=== PATIENT | male | born 1990 | race Caucasian/White ===

== ENCOUNTER 2017-02-02 17:15 | Emergency (ER) | payer SELFPAY ==
[~2017-02-02] VITALS: Ht 182.9 cm; Wt 77.6 kg
[2017-02-02 20:05] VITALS: BP 142/80
== END 2017-02-02 20:39 | disposition home or self-care (01) ==
LOC: EMS 17:18
DX: T40.991A Poisoning by other psychodysleptics [hallucinogens], accidental (unintentional), initial encounter (principal); T43.621A Poisoning by amphetamines, accidental (unintentional), initial encounter; F11.90 Opioid use, unspecified, uncomplicated; F15.90 Other stimulant use, unspecified, uncomplicated; F17.210 Nicotine dependence, cigarettes, uncomplicated; Y92.89 Other specified places as the place of occurrence of the external cause
CPT/HCPCS: 99283

== ENCOUNTER 2020-06-21 15:13 | Emergency (ER) | payer SELFPAY ==
[~2020-06-21] VITALS: Ht 175.3 cm; Wt 68.2 kg
[2020-06-21 15:52] VITALS: BP 110/93
[2020-06-21] MEDS ORDERED: FLUORESCEIN SODIUM 1 MG STRIP OS ONE (16:00)
[2020-06-21] MEDS ORDERED: LORazepam 1 MG TABLET PO ONE (16:15)
== END 2020-06-21 16:38 | disposition home or self-care (01) ==
LOC: EMS 15:17
DX: H57.89 Other specified disorders of eye and adnexa (principal)
CPT/HCPCS: 99283

== ENCOUNTER 2021-08-30 23:30 | Emergency (ER) | payer SELFPAY ==
[~2021-08-30] VITALS: Ht 180.3 cm; Wt 81.8 kg
[2021-08-31 01:12] LABS: BASOPHILS % (AUTO) 0.5 % (0.0-2.0); EOSINOPHILS % (AUTO) 1.4 % (1.0-6.0); HEMATOCRIT 37.3 % (41-53); LYMPHOCYTES # (AUTO) 2.4 K/uL (1.0-4.8); LYMPHOCYTES % (AUTO) 27.7 % (22.0-44.0); MEAN CORPUSCULAR HEMOGLOBIN 29.8 pg (26.0-34.0); MEAN CORPUSCULAR HGB CONC 34.8 G/dL (31.0-37.0); MEAN CORPUSCULAR VOLUME 86 fL (80-100); MONOCYTES # (AUTO) 1.2 K/uL (0.1-1.0); MONOCYTES % (AUTO) 13.7 % (2.0-9.0); NEUTROPHILS % (AUTO) 56.7 % (40.0-70.0); PLATELET COUNT (AUTO) 274 K/uL (150-450); RED BLOOD CELL COUNT(AUTO) 4.35 MIL/uL (4.50-5.90); RED CELL DISTRIBUTION WIDTH 13.5 % (11.5-14.5)
[2021-08-31 01:19] LABS: ANION GAP 10 mmol/L (8-16); CALCIUM, TOTAL 7.9 mg/dL (8.8-10.5); CARBON DIOXIDE 26 mmol/L (22-29); CHLORIDE 108 mmol/L (98-107); CREATININE 1.21 mg/dL (0.60-1.30); GLOMERULAR FILTR. RATE CALC > 60 mL/min (>60); GLUCOSE,RANDOM 114 mg/dL (70-110); POTASSIUM 3.4 mmol/L (3.5-5.1); SODIUM SERUM 144 mmol/L (136-145); UREA NITROGEN, BLOOD 18 mg/dL (7-18)
[2021-08-31 01:26] LABS: ALANINE AMINOTRANSFERASE 192 U/L (12-78); ALBUMIN 3.3 g/dL (3.4-5.0); ALKALINE PHOSPHATASE 106 U/L (46-116); BILIRUBIN,TOTAL 0.5 mg/dL (0.1-1.0); TOTAL PROTEIN, SERUM 6.6 g/dL (6.4-8.2)
[2021-08-31 01:35] LABS: ASPARTATE AMINOTRANSFERASE 708 U/L (15-37)
[2021-08-31 01:38] VITALS: BP 130/81
[2021-08-31 01:41] LABS: COVID AG,FIA SOURCE NASAL SWAB
== END 2021-08-31 06:58 | disposition home or self-care (01) ==
LOC: EMS 23:32
DX: F10.10 Alcohol abuse, uncomplicated (principal); F11.10 Opioid abuse, uncomplicated; F15.10 Other stimulant abuse, uncomplicated; F17.210 Nicotine dependence, cigarettes, uncomplicated; Y90.4 Blood alcohol level of 80-99 mg/100 ml; Z20.822 Contact with and (suspected) exposure to COVID-19
CPT/HCPCS: 36415; 80053; 85025; 87426; 99285; G0480

== ENCOUNTER 2021-10-15 17:08 | Inpatient (IN) | payer MEDICAID, OTHER ==
[~2021-10-15] VITALS: Ht 170.2 cm; Wt 89.5 kg
[2021-10-15 18:12] LABS: BASOPHILS % (AUTO) 0.7 % (0.0-2.0); EOSINOPHILS % (AUTO) 2.2 % (1.0-6.0); HEMATOCRIT 40.6 % (41-53); HEMOGLOBIN 13.6 g/dL (13.5-17.5); LYMPHOCYTES # (AUTO) 1.9 K/uL (1.0-4.8); LYMPHOCYTES % (AUTO) 34.9 % (22.0-44.0); MEAN CORPUSCULAR HEMOGLOBIN 29.9 pg (26.0-34.0); MEAN CORPUSCULAR HGB CONC 33.5 G/dL (31.0-37.0); MEAN CORPUSCULAR VOLUME 89 fL (80-100); MONOCYTES # (AUTO) 0.8 K/uL (0.1-1.0); MONOCYTES % (AUTO) 13.9 % (2.0-9.0); NEUTROPHILS # (AUTO) 2.7 K/uL (1.8-7.7); NEUTROPHILS % (AUTO) 48.3 % (40.0-70.0); PLATELET COUNT (AUTO) 286 K/uL (150-450); RED BLOOD CELL COUNT(AUTO) 4.55 MIL/uL (4.50-5.90); RED CELL DISTRIBUTION WIDTH 14.1 % (11.5-14.5)
[2021-10-15 18:19] LABS: COVID AG,FIA SOURCE NASOPHARYNGEAL
[2021-10-15 18:21] LABS: ANION GAP 9 mmol/L (8-16); CALCIUM, TOTAL 8.5 mg/dL (8.8-10.5); CARBON DIOXIDE 25 mmol/L (22-29); CHLORIDE 106 mmol/L (98-107); CREATININE 1.01 mg/dL (0.60-1.30); GLUCOSE,RANDOM 101 mg/dL (70-110); POTASSIUM 4.2 mmol/L (3.5-5.1); SODIUM SERUM 140 mmol/L (136-145); UREA NITROGEN, BLOOD 13 mg/dL (7-18)
[2021-10-15 18:25] LABS: GLOMERULAR FILTR. RATE CALC > 60 mL/min (>60)
[2021-10-15 18:27] LABS: ALANINE AMINOTRANSFERASE 38 U/L (12-78); ALBUMIN 3.9 g/dL (3.4-5.0); ALKALINE PHOSPHATASE 124 U/L (46-116); ASPARTATE AMINOTRANSFERASE 38 U/L (15-37); BILIRUBIN,TOTAL 0.5 mg/dL (0.1-1.0); TOTAL PROTEIN, SERUM 7.9 g/dL (6.4-8.2)
[2021-10-15] MEDS: LORazepam 2 MG TABLET PO PRN (23:10)
[2021-10-16] MEDS ORDERED: MAG HYDROX/AL HYDROX/SIMETH ES 30 ML SUSPENSION UDCUP PO PRN (06:15)
[2021-10-16] MEDS ORDERED: NICOTINE 14 MG/24 HOUR PATCH TD PRN (06:15)
[2021-10-16] MEDS ORDERED: LOPERAMIDE HCL 2 MG CAPSULE PO PRN (06:15)
[2021-10-16] MEDS ORDERED: MAGNESIUM HYDROXIDE SUSPENSION 30 ML UDCUP PO PRN (06:15)
[2021-10-16] MEDS ORDERED: ALBUTEROL SULFATE HFA 90 MCG/PUFF 8 GM INHALER IH PRN (06:15)
[2021-10-16] MEDS ORDERED: GuaiFENesin/D-METHORPHAN [SUGAR-FREE] 200-20MG/10 ML SYRUP UDCUP PO PRN (06:15)
[2021-10-16] MEDS ORDERED: PETROLATUM,WHITE 28 GM JELLY TP PRN (06:15)
[2021-10-16] MEDS ORDERED: CloNIDine HCL 0.1 MG TABLET PO PRN (06:15)
[2021-10-16] MEDS ORDERED: ACETAMINOPHEN 325 MG TABLET PO PRN (06:15)
[2021-10-16] MEDS ORDERED: DOCUSATE SODIUM 100 MG CAPSULE PO PRN (06:15)
[2021-10-16] MEDS ORDERED: ONDANSETRON HCL 4 MG TABLET PO PRN (06:15)
[2021-10-16 08:13] VITALS: BP 125/69
[2021-10-16] MEDS: RisperiDONE 1 MG TABLET PO SCH (15:50)
[2021-10-16] MEDS: LORazepam 2 MG TABLET PO PRN (15:50)
[2021-10-16 16:42] VITALS: BP 153/81
[2021-10-17] MEDS: LORazepam 2 MG TABLET PO PRN (07:51)
[2021-10-17] MEDS: HALOPERIDOL 5 MG TABLET PO PRN (07:51)
[2021-10-17] MEDS: RisperiDONE 1 MG TABLET PO SCH ×2 (07:51→17:05)
[2021-10-17] MEDS: IBUPROFEN 400 MG TABLET PO PRN (07:53)
[2021-10-17 08:47] VITALS: BP 159/91
[2021-10-17 16:05] VITALS: BP 164/88
[2021-10-17 21:03] VITALS: BP 148/84
[2021-10-18] MEDS: RisperiDONE 1 MG TABLET PO SCH ×2 (07:51→17:16)
[2021-10-18 08:05] VITALS: BP 146/92
[2021-10-18] MEDS ORDERED: DiphenhydrAMINE HCL 25 MG CAPSULE PO ONE (08:30)
[2021-10-18 08:49] VITALS: BP 146/87
[2021-10-18 09:05] LABS: HEMOGLOBIN A1C 5.1 % (3.8-5.6)
[2021-10-18 09:10] LABS: CHOL/HDL RATIO 2.7 (4.2-7.3); THYROID STIMULATING HORMONE 0.94 uIU/mL (0.36-3.74)
[2021-10-18] MEDS: ERYTHROMYCIN 0.5% 3.5 GM TUBE OPHTHALMIC OINTMENT OS SCH ×3 (09:35→19:23)
[2021-10-18 16:16] VITALS: BP 131/82
[2021-10-18] MEDS: HALOPERIDOL 5 MG TABLET PO PRN (19:06)
[2021-10-18] MEDS: LORazepam 2 MG TABLET PO PRN (19:06)
[2021-10-18 20:29] VITALS: BP 142/77
[2021-10-19 08:00] VITALS: BP 143/99
[2021-10-19] MEDS: ERYTHROMYCIN 0.5% 3.5 GM TUBE OPHTHALMIC OINTMENT OS SCH ×2 (08:21→16:24)
[2021-10-19] MEDS: HALOPERIDOL 5 MG TABLET PO PRN (08:21)
[2021-10-19] MEDS: RisperiDONE 1 MG TABLET PO SCH ×2 (08:21→16:23)
[2021-10-19] MEDS: LORazepam 2 MG TABLET PO PRN ×2 (08:21→22:00)
[2021-10-19 16:11] VITALS: BP 151/98
[2021-10-19] MEDS: IBUPROFEN 400 MG TABLET PO PRN (16:24)
[2021-10-19] MEDS: ZOLPIDEM TARTRATE 10 MG TABLET PO PRN (22:00)
[2021-10-20 08:25] VITALS: BP 157/102
[2021-10-20] MEDS: IBUPROFEN 400 MG TABLET PO PRN (08:41)
[2021-10-20] MEDS: RisperiDONE 1 MG TABLET PO SCH ×2 (08:41→16:01)
[2021-10-20] MEDS: HALOPERIDOL 5 MG TABLET PO PRN (08:41)
[2021-10-20] MEDS: ERYTHROMYCIN 0.5% 3.5 GM TUBE OPHTHALMIC OINTMENT OS SCH ×2 (08:41→16:01)
[2021-10-20] MEDS: LORazepam 2 MG TABLET PO PRN (08:42)
[2021-10-20 16:32] VITALS: BP 128/91
[2021-10-20 16:43] VITALS: BP 128/91
[2021-10-20] MEDS: ZOLPIDEM TARTRATE 10 MG TABLET PO PRN (21:21)
[2021-10-21 06:42] LABS: COVID AG,FIA SOURCE NASAL SWAB
[2021-10-21 08:19] VITALS: BP 136/90
[2021-10-21] MEDS: RisperiDONE 1 MG TABLET PO SCH ×2 (08:28→17:01)
[2021-10-21] MEDS: LORazepam 2 MG TABLET PO PRN (08:28)
[2021-10-21] MEDS: ERYTHROMYCIN 0.5% 3.5 GM TUBE OPHTHALMIC OINTMENT OS SCH (08:37)
[2021-10-21] MEDS: CIPROFLOXACIN HCL 0.3% 3.5 GM OPHTHALMIC OINTMENT OS SCH ×3 (12:12→17:18)
[2021-10-21] MEDS: AMOX TR/POT CLAV 500 MG/125 MG TABLET PO SCH ×3 (12:12→17:17)
[2021-10-21 16:11] VITALS: BP 142/82
[2021-10-21] MEDS ORDERED: AMOX1TAB15 PO ×2 (16:58→17:03)
== END 2021-10-21 17:45 | disposition left against medical advice (07) | DRG 750 ==
LOC: EMS 17:08 → 3EC 10-16 00:14
PROVIDERS: ADMIT Psychiatry & Neurology Child & Adolescent Psychiatry; ATTEND Psychiatry & Neurology Child & Adolescent Psychiatry
DX: F20.0 Paranoid schizophrenia (principal); F10.20 Alcohol dependence, uncomplicated; F11.90 Opioid use, unspecified, uncomplicated; F15.90 Other stimulant use, unspecified, uncomplicated; F41.9 Anxiety disorder, unspecified; Z20.822 Contact with and (suspected) exposure to COVID-19; Z79.899 Other long term (current) drug therapy; Z87.891 Personal history of nicotine dependence; Z71.51 Drug abuse counseling and surveillance of drug abuser
CPT/HCPCS: 70486; 80053; 80061; 83036; 84443; 85025; 99285; G0480

== ENCOUNTER 2022-05-15 03:15 | Inpatient (IN) | payer MEDICAID, OTHER ==
[~2022-05-15] VITALS: Ht 182.9 cm; Wt 92.5 kg
[~2022-05-15 03:15] MED LIST: OLAN5TAB52 PO
[2022-05-15 08:07] LABS: COVID AG,FIA SOURCE NASOPHARYNGEAL
[2022-05-15 08:34] LABS: BASOPHILS % (AUTO) 0.7 % (0.0-2.0); EOSINOPHILS % (AUTO) 1.9 % (1.0-6.0); HEMATOCRIT 36.1 % (41-53); HEMOGLOBIN 12.2 g/dL (13.5-17.5); LYMPHOCYTES # (AUTO) 1.1 K/uL (1.0-4.8); LYMPHOCYTES % (AUTO) 21.1 % (22.0-44.0); MEAN CORPUSCULAR HGB CONC 33.7 G/dL (31.0-37.0); MEAN CORPUSCULAR VOLUME 89 fL (80-100); MONOCYTES % (AUTO) 18.7 % (2.0-9.0); NEUTROPHILS # (AUTO) 3.1 K/uL (1.8-7.7); NEUTROPHILS % (AUTO) 57.6 % (40.0-70.0); PLATELET COUNT (AUTO) 219 K/uL (150-450); RED BLOOD CELL COUNT(AUTO) 4.06 MIL/uL (4.50-5.90); RED CELL DISTRIBUTION WIDTH 13.4 % (11.5-14.5)
[2022-05-15 08:46] LABS: ANION GAP 11 mmol/L (8-16); CALCIUM, TOTAL 8.6 mg/dL (8.8-10.5); CARBON DIOXIDE 27 mmol/L (22-29); CHLORIDE 101 mmol/L (98-107); CREATININE 0.73 mg/dL (0.60-1.30); GLOMERULAR FILTR. RATE CALC > 60 mL/min (>60); GLUCOSE,RANDOM 85 mg/dL (70-110); POTASSIUM 3.4 mmol/L (3.5-5.1); SODIUM SERUM 139 mmol/L (136-145); UREA NITROGEN, BLOOD 15 mg/dL (7-18)
[2022-05-15 08:52] LABS: ALANINE AMINOTRANSFERASE 69 U/L (12-78); ALBUMIN 3.6 g/dL (3.4-5.0); ALKALINE PHOSPHATASE 100 U/L (46-116); ASPARTATE AMINOTRANSFERASE 80 U/L (15-37); BILIRUBIN,TOTAL 0.5 mg/dL (0.1-1.0); TOTAL PROTEIN, SERUM 7.3 g/dL (6.4-8.2)
[2022-05-15 09:33] LABS: AMPHET/METH SCREEN,URINE POSITIVE (NEGATIVE); BARBITURATE SCREEN, URINE NEGATIVE (NEGATIVE); BENZODIAZEPINES SCREEN,URINE NEGATIVE (NEGATIVE); CANNABINOID SCREEN,URINE NEGATIVE (NEGATIVE); COCAINE SCREEN,URINE NEGATIVE (NEGATIVE); METHADONE SCREEN, URINE NEGATIVE (NEGATIVE); OPIATE SCREEN,URINE NEGATIVE (NEGATIVE); PHENCYCLIDINE SCREEN,URINE NEGATIVE (NEGATIVE)
[2022-05-15] MEDS ORDERED: OLANZapine 5 MG RAPDIS TABLET PO ONE (11:00)
[2022-05-15] MEDS ORDERED: PERMETHRIN 5% 60 GM CREAM TP ONE (12:45)
[2022-05-15] MEDS ORDERED: POTASSIUM CHLORIDE 20 MEQ ER TABLET PO ONE (12:45)
[2022-05-15] MEDS ORDERED: HALOPERIDOL 5 MG TABLET PO PRN (14:00)
[2022-05-15 16:46] VITALS: BP 118/70
[2022-05-15] MEDS: OLANZapine 5 MG TABLET PO SCH (17:43)
[2022-05-15] MEDS: LORazepam 2 MG TABLET PO PRN (17:46)
[2022-05-15 20:10] VITALS: BP 115/76
[2022-05-16] MEDS: OLANZapine 5 MG TABLET PO SCH ×2 (08:39→16:19)
[2022-05-16 08:40] VITALS: BP 126/72
[2022-05-16] MEDS: BACITRACIN 28 GM OINTMENT TP SCH ×2 (08:41→16:19)
[2022-05-16] MEDS ORDERED: NICOTINE 14 MG/24 HOUR PATCH TD SCH (09:00)
[2022-05-16] MEDS ORDERED: DOCUSATE SODIUM 100 MG CAPSULE PO PRN (11:15)
[2022-05-16] MEDS ORDERED: LOPERAMIDE HCL 2 MG CAPSULE PO PRN (11:15)
[2022-05-16] MEDS ORDERED: PETROLATUM,WHITE 28 GM JELLY TP PRN (11:15)
[2022-05-16] MEDS ORDERED: GuaiFENesin/D-METHORPHAN [SUGAR-FREE] 200-20MG/10 ML SYRUP UDCUP PO PRN (11:15)
[2022-05-16] MEDS ORDERED: CloNIDine HCL 0.1 MG TABLET PO PRN (11:15)
[2022-05-16] MEDS ORDERED: MAG HYDROX/AL HYDROX/SIMETH ES 30 ML SUSPENSION UDCUP PO PRN (11:15)
[2022-05-16] MEDS ORDERED: NICOTINE 14 MG/24 HOUR PATCH TD PRN (11:15)
[2022-05-16] MEDS ORDERED: MAGNESIUM HYDROXIDE SUSPENSION 30 ML UDCUP PO PRN (11:15)
[2022-05-16] MEDS ORDERED: ALBUTEROL SULFATE HFA 90 MCG/PUFF 8 GM INHALER IH PRN (11:15)
[2022-05-16] MEDS ORDERED: IBUPROFEN 400 MG TABLET PO PRN (11:15)
[2022-05-16] MEDS ORDERED: ACETAMINOPHEN 325 MG TABLET PO PRN (11:15)
[2022-05-16] MEDS ORDERED: ONDANSETRON HCL 4 MG TABLET PO PRN (11:15)
[2022-05-16] MEDS: LORazepam 2 MG TABLET PO PRN (16:40)
[2022-05-16 20:09] VITALS: BP 122/68
[2022-05-16] MEDS ORDERED: HYDROCORTISONE 2.5% 30 GM CREAM TP PRN (21:30)
[2022-05-17] MEDS: OLANZapine 5 MG TABLET PO SCH ×2 (08:13→16:13)
[2022-05-17] MEDS: BACITRACIN 28 GM OINTMENT TP SCH ×2 (08:13→16:13)
[2022-05-17 08:54] VITALS: BP 125/87
[2022-05-17 20:27] VITALS: BP 125/74
[2022-05-18] MEDS: LORazepam 2 MG TABLET PO PRN ×3 (01:19→16:06)
[2022-05-18] MEDS: ZOLPIDEM TARTRATE 10 MG TABLET PO PRN (01:19)
[2022-05-18 08:00] VITALS: BP 130/63
[2022-05-18] MEDS: OLANZapine 5 MG TABLET PO SCH ×2 (09:00→16:06)
[2022-05-18] MEDS: BACITRACIN 28 GM OINTMENT TP SCH ×2 (09:01→16:06)
[2022-05-19] MEDS: LORazepam 2 MG TABLET PO PRN ×2 (03:59→22:03)
[2022-05-19] MEDS: OLANZapine 5 MG TABLET PO SCH ×2 (08:14→16:17)
[2022-05-19 08:22] VITALS: BP 122/75
[2022-05-19] MEDS: BACITRACIN 28 GM OINTMENT TP SCH ×2 (08:49→16:18)
[2022-05-19 20:07] VITALS: BP 118/72
[2022-05-19] MEDS: ZOLPIDEM TARTRATE 10 MG TABLET PO PRN (22:02)
[2022-05-20] MEDS: OLANZapine 5 MG TABLET PO SCH (08:13)
[2022-05-20 08:32] VITALS: BP 125/83
[2022-05-20] MEDS: BACITRACIN 28 GM OINTMENT TP SCH (08:43)
== END 2022-05-20 13:11 | disposition home or self-care (01) | DRG 750 ==
LOC: EMS 03:15 → B3A 14:41
PROVIDERS: ADMIT Psychiatry & Neurology Child & Adolescent Psychiatry; ATTEND Psychiatry & Neurology Child & Adolescent Psychiatry
DX: F20.0 Paranoid schizophrenia (principal); D64.9 Anemia, unspecified; E87.6 Hypokalemia; F11.10 Opioid abuse, uncomplicated; F15.10 Other stimulant abuse, uncomplicated; F32.A Depression, unspecified; Z20.822 Contact with and (suspected) exposure to COVID-19; F90.9 Attention-deficit hyperactivity disorder, unspecified type; F10.10 Alcohol abuse, uncomplicated; Y90.9 Presence of alcohol in blood, level not specified; Z87.891 Personal history of nicotine dependence; Z71.51 Drug abuse counseling and surveillance of drug abuser; Z59.00 Homelessness unspecified
CPT/HCPCS: 80053; 80307; 84132; 85025; 87081; 99285; G0480

== ENCOUNTER 2022-05-21 03:11 | Inpatient (IN) | payer MEDICAID, OTHER ==
[~2022-05-21] VITALS: Ht 182.9 cm; Wt 87.5 kg
[2022-05-21] MEDS ORDERED: LORazepam 2 MG TABLET PO ONE (05:00)
[2022-05-21] MEDS ORDERED: HALOPERIDOL 5 MG TABLET PO ONE (05:00)
[2022-05-21 05:50] LABS: COVID AG,FIA SOURCE NASOPHARYNGEAL
[2022-05-21 06:27] LABS: BASOPHILS % (AUTO) 0.6 % (0.0-2.0); EOSINOPHILS % (AUTO) 0.8 % (1.0-6.0); HEMATOCRIT 39.9 % (41-53); HEMOGLOBIN 13.2 g/dL (13.5-17.5); LYMPHOCYTES # (AUTO) 2.1 K/uL (1.0-4.8); LYMPHOCYTES % (AUTO) 17.6 % (22.0-44.0); MEAN CORPUSCULAR HEMOGLOBIN 29.8 pg (26.0-34.0); MEAN CORPUSCULAR HGB CONC 33.1 G/dL (31.0-37.0); MEAN CORPUSCULAR VOLUME 90 fL (80-100); MONOCYTES # (AUTO) 1.6 K/uL (0.1-1.0); MONOCYTES % (AUTO) 13.5 % (2.0-9.0); NEUTROPHILS # (AUTO) 7.9 K/uL (1.8-7.7); NEUTROPHILS % (AUTO) 67.5 % (40.0-70.0); PLATELET COUNT (AUTO) 361 K/uL (150-450); RED BLOOD CELL COUNT(AUTO) 4.44 MIL/uL (4.50-5.90); RED CELL DISTRIBUTION WIDTH 14.2 % (11.5-14.5)
[2022-05-21 06:38] LABS: ANION GAP 7 mmol/L (8-16); CALCIUM, TOTAL 8.9 mg/dL (8.8-10.5); CARBON DIOXIDE 32 mmol/L (22-29); CHLORIDE 102 mmol/L (98-107); CREATININE 0.97 mg/dL (0.60-1.30); GLOMERULAR FILTR. RATE CALC > 60 mL/min (>60); GLUCOSE,RANDOM 89 mg/dL (70-110); SODIUM SERUM 141 mmol/L (136-145); UREA NITROGEN, BLOOD 21 mg/dL (7-18)
[2022-05-21 06:41] LABS: ALANINE AMINOTRANSFERASE 78 U/L (12-78); ALBUMIN 4.1 g/dL (3.4-5.0); ALKALINE PHOSPHATASE 94 U/L (46-116); ASPARTATE AMINOTRANSFERASE 95 U/L (15-37); BILIRUBIN,TOTAL 0.3 mg/dL (0.1-1.0)
[2022-05-21 09:45] LABS: AMPHET/METH SCREEN,URINE POSITIVE (NEGATIVE); BARBITURATE SCREEN, URINE NEGATIVE (NEGATIVE); BENZODIAZEPINES SCREEN,URINE NEGATIVE (NEGATIVE); CANNABINOID SCREEN,URINE NEGATIVE (NEGATIVE); COCAINE SCREEN,URINE NEGATIVE (NEGATIVE); METHADONE SCREEN, URINE NEGATIVE (NEGATIVE); OPIATE SCREEN,URINE NEGATIVE (NEGATIVE); PHENCYCLIDINE SCREEN,URINE NEGATIVE (NEGATIVE)
[2022-05-21] MEDS ORDERED: LORazepam 2 MG/ML VIAL ONE (11:07)
[2022-05-21] MEDS ORDERED: ChlorproMAZINE HCL 50 MG/2 ML AMP ONE (11:07)
[2022-05-21] MEDS ORDERED: ChlorproMAZINE HCL 50 MG/2 ML AMP IM ONE (11:15)
[2022-05-21] MEDS ORDERED: LORazepam 2 MG/ML VIAL IM ONE (11:15)
[2022-05-21 11:26] VITALS: BP 129/79
[2022-05-21] MEDS ORDERED: INFLUENZA VIRUS VACCINE QVS 2022-23 (6MO+)/PF 60 MCG/0.5 ML SYRINGE IM. ONE (12:00)
[2022-05-21 20:42] VITALS: BP 132/78
[2022-05-22] MEDS: HALOPERIDOL 5 MG TABLET PO PRN ×2 (09:03→18:07)
[2022-05-22] MEDS: LORazepam 2 MG TABLET PO PRN ×2 (09:04→17:25)
[2022-05-22 09:14] VITALS: BP 140/84
[2022-05-22] MEDS: OLANZapine 5 MG TABLET PO SCH ×2 (09:20→17:25)
[2022-05-22 20:53] VITALS: BP 133/79
[2022-05-23] MEDS: OLANZapine 5 MG TABLET PO SCH ×2 (09:08→16:38)
[2022-05-23] MEDS ORDERED: MAG HYDROX/AL HYDROX/SIMETH ES 30 ML SUSPENSION UDCUP PO PRN (09:30)
[2022-05-23] MEDS ORDERED: ACETAMINOPHEN 325 MG TABLET PO PRN (09:30)
[2022-05-23] MEDS ORDERED: CloNIDine HCL 0.1 MG TABLET PO PRN (09:30)
[2022-05-23] MEDS ORDERED: IBUPROFEN 400 MG TABLET PO PRN (09:30)
[2022-05-23] MEDS ORDERED: GuaiFENesin/D-METHORPHAN [SUGAR-FREE] 200-20MG/10 ML SYRUP UDCUP PO PRN (09:30)
[2022-05-23] MEDS ORDERED: PETROLATUM,WHITE 28 GM JELLY TP PRN (09:30)
[2022-05-23] MEDS ORDERED: DOCUSATE SODIUM 100 MG CAPSULE PO PRN (09:30)
[2022-05-23] MEDS ORDERED: MAGNESIUM HYDROXIDE SUSPENSION 30 ML UDCUP PO PRN (09:30)
[2022-05-23] MEDS ORDERED: ALBUTEROL SULFATE HFA 90 MCG/PUFF 8 GM INHALER IH PRN (09:30)
[2022-05-23] MEDS ORDERED: LOPERAMIDE HCL 2 MG CAPSULE PO PRN (09:30)
[2022-05-23] MEDS ORDERED: NICOTINE 14 MG/24 HOUR PATCH TD PRN (09:30)
[2022-05-23] MEDS ORDERED: ONDANSETRON HCL 4 MG TABLET PO PRN (09:30)
[2022-05-23 20:28] VITALS: BP 140/67
[2022-05-24] MEDS: OLANZapine 5 MG TABLET PO SCH ×2 (08:45→16:17)
[2022-05-24 09:00] VITALS: BP 110/71
[2022-05-24 21:12] VITALS: BP 142/87
[2022-05-25] MEDS: OLANZapine 5 MG TABLET PO SCH ×2 (08:23→16:05)
[2022-05-25 08:42] VITALS: BP 143/57
[2022-05-26 00:18] VITALS: BP 129/71
[2022-05-26] MEDS: ZOLPIDEM TARTRATE 10 MG TABLET PO PRN (02:56)
[2022-05-26 08:38] VITALS: BP 108/69
[2022-05-26] MEDS: OLANZapine 5 MG TABLET PO SCH ×2 (09:23→16:30)
[2022-05-26 20:33] VITALS: BP 133/79
[2022-05-27] MEDS: ZOLPIDEM TARTRATE 10 MG TABLET PO PRN (00:43)
[2022-05-27 05:21] LABS: GLUCOMETER DEV NAME(LOC) POC.BV
[2022-05-27 08:22] VITALS: BP 126/90
[2022-05-27] MEDS: OLANZapine 5 MG TABLET PO SCH (08:29)
[2022-05-27] MEDS ORDERED: OLAN5TAB52 PO ×2 (10:58→11:01)
[2022-05-29 11:21] LABS: GLUCOMETER DEV NAME(LOC) POC.BV
== END 2022-05-27 13:40 | disposition left against medical advice (07) | DRG 750 ==
LOC: EMS 03:12 → B3A 05:00 → B2S 12:30
PROVIDERS: ADMIT Psychiatry & Neurology Child & Adolescent Psychiatry; ATTEND Psychiatry & Neurology Child & Adolescent Psychiatry
DX: F20.0 Paranoid schizophrenia (principal); D64.9 Anemia, unspecified; D72.829 Elevated white blood cell count, unspecified; Z20.822 Contact with and (suspected) exposure to COVID-19; F10.90 Alcohol use, unspecified, uncomplicated; F15.10 Other stimulant abuse, uncomplicated; F11.10 Opioid abuse, uncomplicated; F17.210 Nicotine dependence, cigarettes, uncomplicated; Z53.29 Procedure and treatment not carried out because of patient's decision for other reasons; Z59.00 Homelessness unspecified; Z23 Encounter for immunization; Z79.899 Other long term (current) drug therapy
CPT/HCPCS: 80053; 80307; 85025; 90686; 99285; G0480; J2060; J3230

== ENCOUNTER 2022-11-06 19:24 | Inpatient (IN) | payer MEDICAID, OTHER ==
[~2022-11-06] VITALS: Ht 182.9 cm; Wt 83.0 kg
[2022-11-06] MEDS ORDERED: LORazepam 2 MG/ML VIAL IM ONE (20:00)
[2022-11-06] MEDS ORDERED: DiphenhydrAMINE HCL 50 MG/ML VIAL IM ONE (20:00)
[2022-11-06] MEDS ORDERED: HALOPERIDOL LACTATE 5 MG/ML VIAL IM ONE (20:00)
[2022-11-06 21:16] LABS: BASOPHILS % (AUTO) 0.8 % (0.0-2.0); EOSINOPHILS % (AUTO) 3.8 % (1.0-6.0); HEMATOCRIT 35.3 % (41-53); HEMOGLOBIN 11.8 g/dL (13.5-17.5); LYMPHOCYTES # (AUTO) 1.9 K/uL (1.0-4.8); LYMPHOCYTES % (AUTO) 27.3 % (22.0-44.0); MEAN CORPUSCULAR HEMOGLOBIN 29.9 pg (26.0-34.0); MEAN CORPUSCULAR HGB CONC 33.5 G/dL (31.0-37.0); MEAN CORPUSCULAR VOLUME 89 fL (80-100); MONOCYTES % (AUTO) 14.3 % (2.0-9.0); NEUTROPHILS # (AUTO) 3.8 K/uL (1.8-7.7); NEUTROPHILS % (AUTO) 53.8 % (40.0-70.0); PLATELET COUNT (AUTO) 218 K/uL (150-450); RED BLOOD CELL COUNT(AUTO) 3.96 MIL/uL (4.50-5.90)
[2022-11-06 21:23] LABS: ANION GAP 7 mmol/L (8-16); CALCIUM, TOTAL 7.5 mg/dL (8.8-10.5); CARBON DIOXIDE 29 mmol/L (22-29); CHLORIDE 107 mmol/L (98-107); CREATININE 1.26 mg/dL (0.60-1.30); GLOMERULAR FILTR. RATE CALC > 60 mL/min (>60); GLUCOSE,RANDOM 135 mg/dL (70-110); POTASSIUM 3.7 mmol/L (3.5-5.1); SODIUM SERUM 143 mmol/L (136-145)
[2022-11-06 21:29] LABS: ALANINE AMINOTRANSFERASE 37 U/L (12-78); ALKALINE PHOSPHATASE 104 U/L (46-116); ASPARTATE AMINOTRANSFERASE 46 U/L (15-37); BILIRUBIN,TOTAL 0.3 mg/dL (0.1-1.0); TOTAL PROTEIN, SERUM 5.9 g/dL (6.4-8.2)
[2022-11-06 21:33] LABS: COVID AG,FIA SOURCE NASOPHARYNGEAL
[2022-11-07 04:01] VITALS: BP 117/60; PULSE 68; RESP 18; TEMP 97.8; O2SAT 100
[2022-11-07 08:17] VITALS: BP 112/72; PULSE 71; RESP 17; TEMP 98.8; O2SAT 98
[2022-11-07] MEDS: OLANZapine 5 MG TABLET PO SCH ×2 (09:15→20:04)
[2022-11-07] MEDS: LORazepam 2 MG TABLET PO PRN (16:38)
[2022-11-07] MEDS ORDERED: IBUPROFEN 400 MG TABLET PO PRN (17:00)
[2022-11-07] MEDS ORDERED: NICOTINE 14 MG/24 HOUR PATCH TD PRN (17:00)
[2022-11-07] MEDS ORDERED: MAG HYDROX/AL HYDROX/SIMETH ES 30 ML SUSPENSION UDCUP PO PRN (17:00)
[2022-11-07] MEDS ORDERED: PETROLATUM,WHITE 28 GM JELLY TP PRN (17:00)
[2022-11-07] MEDS ORDERED: MAGNESIUM HYDROXIDE SUSPENSION 30 ML UDCUP PO PRN (17:00)
[2022-11-07] MEDS ORDERED: GuaiFENesin/D-METHORPHAN [SUGAR-FREE] 200-20MG/10 ML SYRUP UDCUP PO PRN (17:00)
[2022-11-07] MEDS ORDERED: ACETAMINOPHEN 325 MG TABLET PO PRN (17:00)
[2022-11-07] MEDS ORDERED: LOPERAMIDE HCL 2 MG CAPSULE PO PRN (17:00)
[2022-11-07] MEDS ORDERED: CloNIDine HCL 0.1 MG TABLET PO PRN (17:00)
[2022-11-07] MEDS ORDERED: ALBUTEROL SULFATE HFA 90 MCG/PUFF 8 GM INHALER IH PRN (17:00)
[2022-11-07] MEDS ORDERED: DOCUSATE SODIUM 100 MG CAPSULE PO PRN (17:00)
[2022-11-07] MEDS ORDERED: ONDANSETRON HCL 4 MG TABLET PO PRN (17:00)
[2022-11-07] MEDS: ZOLPIDEM TARTRATE 10 MG TABLET PO PRN (20:05)
[2022-11-07 20:31] VITALS: RESP 18
[2022-11-08 08:27] VITALS: BP 124/76; PULSE 73; RESP 18; TEMP 98.1; O2SAT 98
[2022-11-08] MEDS: OLANZapine 5 MG TABLET PO SCH ×2 (08:29→20:30)
[2022-11-08] MEDS: LORazepam 2 MG TABLET PO PRN ×2 (08:36→20:30)
[2022-11-08] MEDS: HALOPERIDOL 5 MG TABLET PO PRN (08:36)
[2022-11-08 20:14] VITALS: BP 128/68; PULSE 80; RESP 18; TEMP 98; O2SAT 98
[2022-11-09] MEDS: OLANZapine 5 MG TABLET PO SCH ×2 (09:05→20:22)
[2022-11-09] MEDS: LORazepam 2 MG TABLET PO PRN ×2 (09:05→16:52)
[2022-11-09 15:51] VITALS: BP 120/80; PULSE 78; RESP 18; TEMP 97.9; O2SAT 98
[2022-11-09] MEDS: ZOLPIDEM TARTRATE 10 MG TABLET PO PRN (20:22)
[2022-11-09 21:31] VITALS: RESP 18
[2022-11-10] MEDS: LORazepam 2 MG TABLET PO PRN ×3 (07:48→17:35)
[2022-11-10] MEDS: OLANZapine 5 MG TABLET PO SCH ×2 (08:15→20:10)
[2022-11-10 08:20] VITALS: BP 112/68; PULSE 73; RESP 17; TEMP 97.7; O2SAT 98
[2022-11-10] MEDS: HALOPERIDOL 5 MG TABLET PO PRN ×2 (13:29→17:35)
[2022-11-10 20:16] VITALS: BP 140/84; PULSE 100; RESP 19; TEMP 98.2; O2SAT 98
[2022-11-11 08:07] VITALS: BP 148/88; PULSE 88; RESP 18; TEMP 98; O2SAT 98
[2022-11-11 08:08] LABS: HEMOGLOBIN A1C 5.4 % (3.8-5.6)
[2022-11-11 08:10] LABS: CHOL/HDL RATIO 3.2 (4.2-7.3); THYROID STIMULATING HORMONE 1.39 uIU/mL (0.36-3.74)
[2022-11-11] MEDS: HALOPERIDOL 5 MG TABLET PO PRN ×2 (08:10→14:13)
[2022-11-11] MEDS: OLANZapine 5 MG TABLET PO SCH ×2 (08:10→20:32)
[2022-11-11] MEDS: LORazepam 2 MG TABLET PO PRN ×3 (08:10→20:32)
[2022-11-11 20:09] VITALS: BP 139/74; PULSE 85; RESP 20; TEMP 97.7; O2SAT 96
[2022-11-12] MEDS: LORazepam 2 MG TABLET PO PRN (06:44)
[2022-11-12] MEDS: OLANZapine 5 MG TABLET PO SCH (08:04)
[2022-11-12 08:14] VITALS: BP 126/65; PULSE 98; RESP 18; TEMP 98.2; O2SAT 98
[2022-11-12] MEDS ORDERED: OLAN5TAB52 PO (22:34)
== END 2022-11-12 16:00 | disposition home or self-care (01) | DRG 750 ==
LOC: EMS 19:24 → B3A 11-07 00:34 → EMS 11-07 03:15 → B3A 11-10 17:16
PROVIDERS: ADMIT Psychiatry & Neurology Psychiatry; ATTEND Psychiatry & Neurology Psychiatry
DX: F20.0 Paranoid schizophrenia (principal); R45.851 Suicidal ideations; D64.9 Anemia, unspecified; F15.10 Other stimulant abuse, uncomplicated; F11.10 Opioid abuse, uncomplicated; Z20.822 Contact with and (suspected) exposure to COVID-19; R73.9 Hyperglycemia, unspecified; F10.10 Alcohol abuse, uncomplicated; Z79.899 Other long term (current) drug therapy
CPT/HCPCS: 80053; 80061; 83036; 84443; 85025; 99291; G0480; J1200; J1630; J2060

== ENCOUNTER 2023-02-04 18:53 | Inpatient (IN) | payer MEDICAID, OTHER ==
[~2023-02-04] VITALS: Ht 185.4 cm; Wt 81.0 kg
[2023-02-04 21:00] LABS: BASOPHILS % (AUTO) 0.3 % (0.0-2.0); EOSINOPHILS % (AUTO) 2.1 % (1.0-6.0); HEMATOCRIT 36.2 % (41-53); HEMOGLOBIN 12.1 g/dL (13.5-17.5); LYMPHOCYTES # (AUTO) 1.8 K/uL (1.0-4.8); LYMPHOCYTES % (AUTO) 17.1 % (22.0-44.0); MEAN CORPUSCULAR HEMOGLOBIN 29.9 pg (26.0-34.0); MEAN CORPUSCULAR HGB CONC 33.4 G/dL (31.0-37.0); MEAN CORPUSCULAR VOLUME 90 fL (80-100); MONOCYTES % (AUTO) 9.8 % (2.0-9.0); NEUTROPHILS # (AUTO) 7.2 K/uL (1.8-7.7); NEUTROPHILS % (AUTO) 70.7 % (40.0-70.0); PLATELET COUNT (AUTO) 262 K/uL (150-450); RED BLOOD CELL COUNT(AUTO) 4.04 MIL/uL (4.50-5.90); RED CELL DISTRIBUTION WIDTH 13.5 % (11.5-14.5); WHITE BLOOD COUNT (AUTO) 10.2 K/uL (4.5-11.0)
[2023-02-04 21:11] LABS: ANION GAP 9 mmol/L (8-16); CALCIUM, TOTAL 8.9 mg/dL (8.8-10.5); CARBON DIOXIDE 28 mmol/L (22-29); CHLORIDE 107 mmol/L (98-107); CREATININE 0.74 mg/dL (0.60-1.30); GLOMERULAR FILTR. RATE CALC > 60 mL/min (>60); GLUCOSE,RANDOM 96 mg/dL (70-110); SODIUM SERUM 144 mmol/L (136-145); UREA NITROGEN, BLOOD 14 mg/dL (7-18)
[2023-02-04 21:18] LABS: ALANINE AMINOTRANSFERASE 49 U/L (12-78); ALBUMIN 3.5 g/dL (3.4-5.0); ALKALINE PHOSPHATASE 122 U/L (46-116); ASPARTATE AMINOTRANSFERASE 30 U/L (15-37); BILIRUBIN,TOTAL 0.4 mg/dL (0.1-1.0); TOTAL PROTEIN, SERUM 7.2 g/dL (6.4-8.2)
[2023-02-04 21:19] LABS: ALCOHOL, BLOOD (SERUM) < 3 mg/dL (0-10)
[2023-02-04 21:30] LABS: COVID AG,FIA SOURCE NASAL SWAB
[2023-02-04] MEDS ORDERED: OLANZapine 5 MG TABLET PO ONE (21:30)
[2023-02-04] MEDS ORDERED: DiphenhydrAMINE HCL 25 MG CAPSULE PO ONE (21:30)
[2023-02-04] MEDS ORDERED: BACITRACIN 0.9 GM PACKET OINTMENT TP ONE (21:30)
[2023-02-04 21:47] LABS: SARS-COV2 (COVID) ANTIGEN,FIA Negative (Negative)
[2023-02-04] MEDS ORDERED: HALOPERIDOL 5 MG TABLET PO PRN (23:45)
[2023-02-04] MEDS ORDERED: LORazepam 2 MG TABLET PO PRN (23:45)
[2023-02-04] MEDS ORDERED: ZOLPIDEM TARTRATE 10 MG TABLET PO PRN (23:45)
[2023-02-05 01:15] VITALS: BP 140/96; PULSE 84; RESP 18; TEMP 97.3; O2SAT 98
[2023-02-05] MEDS ORDERED: CloNIDine HCL 0.1 MG TABLET PO PRN (06:00)
[2023-02-05] MEDS ORDERED: IBUPROFEN 600 MG TABLET PO PRN (06:00)
[2023-02-05] MEDS ORDERED: PETROLATUM,WHITE 28 GM JELLY TP PRN (06:00)
[2023-02-05] MEDS ORDERED: OMEPRAZOLE 20 MG CAPSULE PO PRN (06:00)
[2023-02-05] MEDS ORDERED: ACETAMINOPHEN 325 MG TABLET PO PRN (06:00)
[2023-02-05] MEDS ORDERED: LOPERAMIDE HCL 2 MG CAPSULE PO PRN (06:00)
[2023-02-05] MEDS ORDERED: BACITRACIN 28 GM OINTMENT TP PRN (06:00)
[2023-02-05] MEDS ORDERED: MAG HYDROX/ALUMINUM HYD/SIMETH ES 30 ML SUSPENSION UDCUP PO PRN (06:00)
[2023-02-05] MEDS ORDERED: ALBUTEROL SULFATE HFA 90 MCG/PUFF 8 GM INHALER IH PRN (06:00)
[2023-02-05] MEDS ORDERED: BENZOCAINE/MENTHOL LOZENGE PO PRN (06:00)
[2023-02-05] MEDS ORDERED: MAGNESIUM HYDROXIDE SUSPENSION 30 ML UDCUP PO PRN (06:00)
[2023-02-05] MEDS ORDERED: ONDANSETRON HCL 4 MG TABLET PO PRN (06:00)
[2023-02-05] MEDS ORDERED: DOCUSATE SODIUM 100 MG CAPSULE PO PRN (06:00)
[2023-02-05 08:00] VITALS: BP 138/83; PULSE 79; RESP 18
[2023-02-05 20:28] VITALS: BP 134/74; PULSE 69; RESP 18; TEMP 97.5
[2023-02-05] MEDS: OLANZapine 10 MG TABLET PO SCH (21:13)
[2023-02-06 08:00] VITALS: RESP 18
[2023-02-06 09:21] VITALS: RESP 18; TEMP 97.6
[2023-02-06 20:16] VITALS: RESP 18; TEMP 97.9
[2023-02-06] MEDS: OLANZapine 10 MG TABLET PO SCH (20:54)
[2023-02-07 10:27] VITALS: BP 141/105; PULSE 88; RESP 19; TEMP 97.6
[2023-02-07 20:45] VITALS: BP 152/94; PULSE 89; RESP 18; TEMP 97.7
[2023-02-07] MEDS: OLANZapine 10 MG TABLET PO SCH (20:56)
[2023-02-08 10:17] VITALS: BP 136/78; PULSE 95; RESP 18; TEMP 98
== END 2023-02-08 13:30 | disposition home or self-care (01) | DRG 750 ==
LOC: EMS 18:53 → 3EI 23:54
PROVIDERS: ADMIT Psychiatry & Neurology Psychiatry; ATTEND Psychiatry & Neurology Psychiatry
DX: F25.9 Schizoaffective disorder, unspecified (principal); R45.851 Suicidal ideations; F41.9 Anxiety disorder, unspecified; G47.00 Insomnia, unspecified; K59.00 Constipation, unspecified; F10.90 Alcohol use, unspecified, uncomplicated; S90.812A Abrasion, left foot, initial encounter; S90.811A Abrasion, right foot, initial encounter; T43.8X6A Underdosing of other psychotropic drugs, initial encounter; X58.XXXA Exposure to other specified factors, initial encounter; Y93.89 Activity, other specified; Y99.8 Other external cause status; Y92.89 Other specified places as the place of occurrence of the external cause
CPT/HCPCS: 80053; 85025; 99285; G0480

== ENCOUNTER 2025-03-17 02:14 | Emergency (ER) | payer MEDICAID, OTHER ==
[~2025-03-17] VITALS: Ht 180.3 cm; Wt 79.5 kg
[~2025-03-17 02:14] MED LIST changes: +OLAN15TA2 PO; -OLAN5TAB52 PO
[2025-03-17 02:41] LABS: PLATELET COUNT (AUTO) 297 K/uL (150-450); RED BLOOD CELL COUNT(AUTO) 4.41 MIL/uL (4.50-5.90); RED CELL DISTRIBUTION WIDTH 13.7 % (11.5-14.5); WHITE BLOOD COUNT (AUTO) 12.6 K/uL (4.5-11.0)
[2025-03-17 02:48] LABS: COVID AG,FIA SOURCE NASAL SWAB
[2025-03-17 02:48] LABS: CALCIUM, TOTAL 8.8 mg/dL (8.8-10.5); CREATININE 1.18 mg/dL (0.60-1.30); GLOMERULAR FILTR. RATE CALC > 60 mL/min (>60); GLUCOSE,RANDOM 74 mg/dL (70-110); SODIUM SERUM 135 mmol/L (136-145); UREA NITROGEN, BLOOD 33 mg/dL (7-18)
[2025-03-17 02:54] LABS: SARS-COV2 (COVID) ANTIGEN,FIA Negative (Negative)
[2025-03-17] MEDS ORDERED: OLAN7.5T22 PO (04:52)
[2025-03-17 06:30] VITALS: BP 129/86; PULSE 92; RESP 14; TEMP 98.6; O2SAT 98
== END 2025-03-17 06:50 ==
LOC: EMS 02:15
DX: F20.9 Schizophrenia, unspecified (principal); F15.10 Other stimulant abuse, uncomplicated; Z79.899 Other long term (current) drug therapy; Z59.00 Homelessness unspecified; Z20.822 Contact with and (suspected) exposure to COVID-19
CPT/HCPCS: 99285; 87426; 80048; 85025; 36415; G0480